=== PATIENT | female | born 1985 | race Caucasian/White ===

== ENCOUNTER 2020-09-07 17:26 | Emergency (ER) | payer OTHER, SELFPAY ==
[2020-09-07 17:30] VITALS: BP 119/78; PULSE 123; RESP 20; TEMP 38.1; O2SAT 100
--- NOTE | 2020-09-07 17:31 | ED.ABDPAIN ---
HPI - Abdominal Pain General Chief Complaint: Abdominal Pain Stated Complaint: abd pain Time Seen by Provider: 09/07/20 17:31 Source: patient and RN notes reviewed Mode of arrival: ambulatory Limitations: no limitations History of Present Illness HPI narrative: 35-year-old female presents to the [facility] with complaints of generalized abdominal pain for 4-5 days. Patient reports that she has been moving dressers and picking up heavy items for the last couple of days and thinks it is related to her lifting. Denies any nausea and vomiting. Pain is worse today. Denies ever having pain like this. Related Data Home Medications Medication Instructions Recorded Confirmed No Home Medications 09/07/20 09/07/20 Allergies Allergy/AdvReac Type Severity Reaction Status Date / Time No Known Allergies Allergy Mild Verified 09/07/20 17:55 Review of Systems Review of Systems: Narrative: CONSTITUTIONAL: Denies fever, chills, or sweats. EYES: Denies visual changes, redness, or discharge. ENT: Denies rhinorrhea, congestion, sore throat, or otalgia. CARDIOVASCULAR: Denies chest pain, palpitations, or edema. RESPIRATORY: Denies cough or dyspnea. GASTROINTESTINAL: reports abdominal pain. Denies nausea, vomiting, or diarrhea. GENITOURINARY: Denies dysuria or hematuria SKIN: Denies rash or itching. MUSCULOSKELETAL: Denies back pain, joint pain, or myalgia. NEUROLOGIC: Denies headache, numbness, or weakness. PSYCHIATRIC: Denies anxiety or depression. All other systems reviewed are negative, except as documented in HPI. [facility] Past Medical History Medical History (Updated 09/07/20 @ 18:02 by Jennie Dutton) Ovarian cyst Comments At the time of my signature, I reviewed and agree with the nursing past medical, surgical, social, and family history. There is no relevant family history pertinent to the patient complaint. Exam Narrative: Exam Narrative: GENERAL: This is a well-nourished, well-developed patient, in pain. Unable to lying back. In position. Pale. HEAD: normocephalic, atraumatic. NECK: Neck supple, non-tender without lymphadenopathy, masses or thyromegaly. CARDIOVASCULAR: Tachycardic rate and rhythm without murmurs, gallops, or rubs. RESPIRATORY: Clear to auscultation. Breath sounds equal bilaterally. No wheezes, rales, or rhonchi. GASTROINTESTINAL: Abdomen firm, tender with guarding right lower quadrant, epigastric and left upper nondistended. SKIN: warm, Dry, intact with no suspicious lesions or rash, good texture and turgor. NEURO: awake, alert, and oriented to person, place and time. There were no obvious focal neurologic abnormalities. EXTREMITIES: No joint tenderness, effusion, or edema noted. BACK: Nontender without deformity. Course Course Emergency Course: Due to pain right lower quadrant and left upper quadrant with guarding and rebound tenderness patient is being referred for further evaluation to an emergency room. Vital Signs Vital signs: Vital Signs Temperature 100.5 F H 09/07/20 17:30 Pulse Rate 123 H 09/07/20 17:30 Respiratory Rate 20 09/07/20 17:30 Blood Pressure 119/78 09/07/20 17:30 Pulse Oximetry 100 09/07/20 17:30 Temperature 100.5 F H 09/07/20 17:30 Pulse Rate 123 H 09/07/20 17:30 Respiratory Rate 20 09/07/20 17:30 Blood Pressure 119/78 09/07/20 17:30 Pulse Oximetry 100 09/07/20 17:30 Upper reviewed Vital Signs Temp Pulse Resp BP Pulse Ox 09/07/20 17:30 100.5 F H 123 H 20 119/78 100 Intake and Output 09/07/20 09/07/20 09/07/20 07:59 15:59 23:59 Output Total 50 Balance -50 Output: Urine 50 Patient Weight 09/07/20 23:59 Weight 54 kg Febrile, tachycardic Transfer Transfered to: [facility] Transfer rationale: Due to patient's pulse and fever along with firm abdomen complaining of severe pain. Patient has had no abdominal surgeries, concern for appendicitis, ovarian torsion, peritonitis, sm
== END 2020-09-07 17:55 | disposition short-term general hospital (02) ==
PROVIDERS: Emergency Provider Nurse Practitioner; PCP Emergency Medicine
DX: R10.31 Right lower quadrant pain (principal); R10.13 Epigastric pain; R10.12 Left upper quadrant pain
CPT/HCPCS: 81003; 81025; 99205; G0463